=== PATIENT | male | born 1990 | race African-American/Black ===

== ENCOUNTER 2023-05-20 18:00 | Emergency (ER) | payer MEDICARE, MEDICAID ==
[~2023-05-20] VITALS: Ht 170.2 cm; Wt 64.0 kg
[2023-05-20 18:04] VITALS: BP 146/101; PULSE 86; RESP 18; TEMP 98.4; O2SAT 99
[2023-05-20 20:06] LABS: BASOPHILS % 0.5 % (0.0-2.0); EOSINOPHILS % 0.8 % (0.0-5.0); HEMATOCRIT. 43.8 % (42.0-52.0); HEMOGLOBIN. 14.2 g/dL (14.0-18.0); LYMPHOCYTES % 23.8 % (20.0-50.0); MEAN CORPUSCULAR HEMOGLOBIN 28.2 pg (28.0-32.0); MEAN CORPUSCULAR HGB CONC 32.5 g/dL (31.0-37.0); MEAN CORPUSCULAR VOLUME 86.8 fL (80.0-94.0); MEAN PLATELET VOLUME 8.9 fl (7.4-10.4); MONOCYTES % 7.3 % (2.0-8.0); NEUTROPHILS % 67.6 % (40.0-76.0); PLATELET 268 x1000/uL (130-400); RED BLOOD CELL COUNT 5.05 mill/uL (4.7-6.1); RED CELL DISTRIBUTION WIDTH 13.4 % (11.6-14.6); WHITE BLOOD COUNT 8.7 x1000/uL (4.5-11.0)
[2023-05-20 20:11] LABS: PROTHROMBIN TIME 10.9 sec (9.6-11.0)
[2023-05-20 20:15] LABS: ALANINE AMINOTRANSFERASE 9 IU/L (10-49); ALBUMIN 4.7 g/dL (3.2-4.8); ASPARTATE AMINOTRANSFERASE 19 IU/L (<34); BILIRUBIN TOTAL 1.3 mg/dL (0.1-1.0); CALCIUM 9.9 mg/dL (8.7-10.4); CARBON DIOXIDE 29 mEq/L (21-32); CHLORIDE 102 mEq/L (98-107); CREATININE 1.1 mg/dL (0.6-1.3); GLUCOSE 83 mg/dL (70-105); POTASSIUM 3.1 mEq/L (3.5-5.1); PROTEIN TOTAL 7.2 g/dL (6.0-8.3); SODIUM 140 mEq/L (136-145); UREA NITROGEN BLOOD 8 mg/dL (9-23)
[2023-05-20] MEDS ORDERED: AMOX-494 MT (20:32)
[2023-05-20] MEDS ORDERED: TOPUD MT (20:32)
[2023-05-20] MEDS ORDERED: IBUP-1525 MT (20:32)
[2023-05-20] MEDS ORDERED: DOCU-138 MT (23:28)
== END 2023-05-20 23:52 | disposition home or self-care (01) ==
LOC: ER 18:00
DX: K05.10 Chronic gingivitis, plaque induced (principal); K02.9 Dental caries, unspecified; J45.909 Unspecified asthma, uncomplicated
CPT/HCPCS: 36415; 80053; 85025; 99283